=== PATIENT | male | born 1995 | race Caucasian/White ===

== ENCOUNTER 2018-02-25 10:57 | Emergency (ER) | payer OTHER ==
--- NOTE | 2018-02-25 11:23 | ED PSYCHIATRIC COMPLAINT ---
History of Present Illness General Chief Complaint: Psychiatric Related Complaint Stated Complaint: DEPRESSION Source: UNKNOWN Exam Limitations: no limitations Vital Signs & Intake/Output Vital Signs & Intake/Output Vital Signs Date Time Temp Pulse Resp B/P B/P Pulse O2 O2 Flow FiO2 Mean Ox Delivery Rate 02/25 1644 97.5 75 18 147/69 97 02/25 1519 97.7 72 18 115/77 99 Room Air 02/25 1322 98.2 88 18 118/74 100 Room Air 02/25 1103 98.0 76 16 124/77 99 Room Air Allergies Coded Allergies: [id number] Antimigraine Agents (Intermediate, PARADOXICAL REACTION 02/25/18) lurasidone (From LATUDA) (Intermediate, PARADOXICAL REACTION 02/25/18) Reconcile Medications Clonazepam 1 MG TABLET 1.5 TAB PO BID MENTAL HEALTH (Reported) Paroxetine HCl 25 MG TAB.ER.24H 2 TAB PO DAILY DEPRESSION (Reported) Triage Note: 22M ENDORSES SEVERE DEPRESSION. APPEARS DYSPHORIC, SPEECH SLOW, LIMITED RANGE OF AFFECT AND ENDORSES INCREASING DYSTONIA. MOTHER REPORTS HE HAD THOUGHTS OF HURTING HIMSELF LAST NIGHT BUT HE REPORTS HE HAS NO INTENT HE JUST DOESN'T WANT TO LIVE. DENIES HI/AH/VH. DENIES ETOH, REPORTS OCCASSIONAL MJ USE. TAKES PAXIL AND KLONOPIN. SLEEPS MOST OF THE DAY, ENDORSES ISOLATING. HX INPATIENT HOSPITALIZATION 4-5 YEARS AGO AT [facility] Triage Nurses Notes Reviewed? yes HPI: 22-year-old male with a history of schizoaffective disorder comes in with depression and suicidal ideations. He was brought in by his parents. He is also on the autism spectrum. Physically the patient denies any pain. He reports increasing depression and worsening symptoms over 2 months, worse over the last 2 days. The patient reports admission for psychiatric issues in the past but denies any suicidal attempts in the past. He reports he felt suicidal before coming to the emergency room, currently does not feel actively suicidal. (Atul Yousif DO) Past History Travel History Traveled to [place] past 21 day No Medical History Any Pertinent Medical History? see below for history Psychiatric: anxiety, GDD AUTISM Surgical History Surgical History: non-contributory Psychosocial History What is your primary language Scottish Tobacco Use: Never used Family History Hx Contributory? No (Atul Yousif DO) Review of Systems Review of Systems Constitutional: Denies: no symptoms, fever. EENTM: Denies: no symptoms. Respiratory: Denies: no symptoms. Cardiovascular: Denies: no symptoms. GI: Denies: no symptoms. Genitourinary: Denies: no symptoms. Musculoskeletal: Denies: no symptoms. Skin: Reports: no symptoms. Neurological/Psychological: Reports: depressed, emotional problems, headache. Denies: confusion, dementia. Hematologic/Endocrine: Reports: no symptoms. Immunologic/Allergic: Reports: no symptoms. (Atul Yousif DO) Physical Exam Physical Exam General Appearance: well developed/nourished, no apparent distress, alert, awake Head: atraumatic, normal appearance Eyes: Bilateral: normal appearance, PERRL. Ears, Nose, Throat: normal pharynx, normal ENT inspection Respiratory: normal breath sounds, chest non-tender, no respiratory distress Gastrointestinal: normal bowel sounds, soft, non-tender Extremities: normal range of motion Neurological/Psychiatric: awake, agitated, alert, PATIENT IS WITHDRAWN, AVOIDS EYE CONTACT. 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 yes 1 Depression/Hopelessness? yes 2 Previous Attempts/Psych Care yes 1 Excessive Ethanol/Drug Use? yes 1 Rational Thinking Loss? yes 2 Single//? yes 1 Social Support? has support 0 Stated Future Intent? yes 2 Total 10 SAD PERSONS Done? yes (Atul Yousif DO) Progress Differential Diagnosis: drug intoxication, drug overdose, drug withdrawal, DEPRESSION Plan of Care: Orders Procedure Date/time Status Regular Diet 02/25 D Active Continuous Observation Monitor 02/25 1122 Active URINE DRUG SCREEN FOR ER ONLY 02/25 112 Complete URINALYSIS 02/25 112 Complete ETHANOL 02/25 112 Complete COMPREHENSIVE METABOLIC PANEL 02/25 112 Complete CBC WITHOUT DIFFERENTIAL 02/25 1122 Complete ED CRISIS PSYCH CONSULT 02/25 1122 Active Laboratory Tests 02/25/18 1258: Urine Opiates Screen < 100, Methadone Screen < 40, Barbiturate Screen < 60, Ur Phencyclidine Scrn < 6.00, Amphetamines Screen < 100, U Benzodiazepines Scrn < 85, Urine Cocaine Screen < 50, Urine Cannabis Screen > 80.00 H, Urine Color YEL , Urine Clarity CLEAR, Urine pH 6.0, Ur Specific [place] <= 1.005, Urine Protein NEG, Urine Ketones NEG, Urine Nitrite NEG, Urine Bilirubin NEG, Urine Urobilinogen 0.2, Ur Leukocyte Esterase NEG, Ur Microscopic EXAM NOT REQUIRED, Urine Hemoglobin NEG, Urine Glucose NEG 02/25/18 1249: Anion Gap 12, Estimated GFR > 60, BUN/Creatinine Ratio 30.0 H, Glucose 101 H, Calcium 9.4, Total Bilirubin 0.4, AST 20, ALT 29, Alkaline Phosphatase 61, Total Protein 7.1, Albumin 4.2, Globulin 2.9, Albumin/Globulin Ratio 1.4, CBC w Diff NO MAN DIFF REQ, RBC 4.73, MCV 85.5, MCH 29.5, MCHC 34.5, RDW 12.5, MPV 7.6, Gran % 49.9, Lymphocytes % 36.1, Monocytes % 7.0, Eosinophils % 6.3 H, Basophils % 0.7, Absolute Granulocytes 3.9, Absolute Lymphocytes 2.8, Absolute Monocytes 0.5, Absolute Eosinophils 0.5, Absolute Basophils 0.1, Serum Alcohol < 10.0 Initial ED EKG: none (Atul Yousif DO) Comments: 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 (Loyd BRISCOE,Demar Dougherty) Departure Departure Condition: Stable Clinical Impression Primary Impression: Depression Secondary Impressions: Suicidal ideation Referrals: Mary Garcia MD Departure Forms: Customer Survey General Discharge Information Comments Patient was signed out to Dr. Harp at 2 PM (Atul Yousif DO) Departure Disposition: HOME OR SELF CARE (Loyd BRISCOE,Demar Dougherty)
[2018-02-25] MEDS ORDERED: PAROXETINE HCL25 MG PO (12:23)
[2018-02-25] MEDS ORDERED: CLONAZEPAM1 M2 PO (12:24)
[2018-02-25 13:02] LABS: ABSOLUTE BASOPHIL COUNT 0.1 /CUMM (0.0-0.2); ABSOLUTE EOSINOPHIL COUNT 0.5 /CUMM (0.0-0.7); ABSOLUTE GRANULOCYTE CT 3.9 /CUMM (1.4-6.5); ABSOLUTE LYMPH COUNT 2.8 /CUMM (1.2-3.4); ABSOLUTE MONOCYTE COUNT 0.5 /CUMM (0.10-0.60); BASOPHIL % 0.7 % (0.0-2.0); EOSINOPHIL % 6.3 % (0-5); GRANULOCYTE % 49.9 % (42.2-75.2); HEMATOCRIT 40.5 % (42-52); MEAN CORPUSCULAR HGB 29.5 PG (27.0-31.0); MEAN CORPUSCULAR HGB CONC 34.5 G/DL (33.0-37.0); MEAN CORPUSCULAR VOLUME 85.5 FL (80.0-94.0); MEAN PLATELET VOLUME 7.6 FL (7.4-10.4); PLATELET COUNT 260 /CUMM (130-400); RBC DISTRIBUTION WIDTH 12.5 % (11.5-14.5); RED BLOOD CELL CT 4.73 /CUMM (4.70-6.10); WHITE BLOOD CELL COUNT 7.8 /CUMM (4.8-10.8)
--- NOTE | 2018-02-25 16:29 | ED PSYCH CRISIS CONSULTATION ---
Crisis Consult Basic Assessment Date of Consult: 02/25/18 Responsible Person/Accompanied By: Tao Hernandez, father Insurance Authorization: Insurance #1: Insurance name: [employer]GE LACEY Phone number: Policy number: [id number] Group number: Authorization number: ED Provider: Patient's ED Provider: Atul Yousif DO Primary Care Physician: Patient's PCP: Samson Horton DO PCP's Current Psychiatrist: Dr Villatoro Chief Complaint: Psychiatric Related Anxiety and depression Patient's Quote: "Anxiety is the big problem, but i'm more depressed" Present Illness: Patient is a 22 year old unmarried male who lives with his family, and was brought to [facility] by his mother, who is concerned about his low energy level and greater isolation. Patient has been diagnosed as autistic and had been diagnosed as ADHD as a child, and he found school to be very difficult. Patient admits that he has been isolating more, and has been missing time at work, at [employer] where he is scheduled for 20 hours per week. Patient states that he does have fewer friends, and that he has not made a greater effort as he sees himself as "falling further behind, while others are getting way ahead". He also stated that he has only one friend who really "gets" him, and that it is harder for him to relate to some of periferal friends, and that he doesn't really have fun at work, "because it is work and is not supposed to be enjoyable ". Patient was very deliberate and thoughtful with his responses. He stated that he would not want to hurt himself, "because I think that suicide would be the worst thing, but I could see myself risking myself in order to do good, and save someone". Patient reports that he has been on the same medication for at least 3 years, and was thinking that that was the best things would ever get, but he now wonders if it is really helping at all. He has been taking Paxil 50 m.g., and Clonopin, 1.5 m.g. twice per day. Patient has bewen tried on other medications in the past, but he found they did not help or had worse side effects. They were : Latuda, Abilify, Seroquel, and Wilner. Patient has had considerable difficulty in social and school situations in the past. Patient does want help and states that he is willing to do what he needs to jorden. Patient's Address: [address] [place] [address] [place] [id number] Other Phone Number: Who Do You Live With? Family Family/Informants Interviewed: mother, father Mustapha Allergies - Coded Allergies: [id number] Antimigraine Agents (Intermediate, PARADOXICAL REACTION 02/25/18) lurasidone (From LATUDA) (Intermediate, PARADOXICAL REACTION 02/25/18) Current Medications - Scheduled Medications Clonazepam 1 MG TABLET 1.5 TAB PO BID MENTAL HEALTH #90 (Reported) Entered as Reported by Telly Retana on 02/25/18 1224 Paroxetine HCl 25 MG TAB.ER.24H 2 TAB PO DAILY DEPRESSION #180 (Reported) Entered as Reported by Telly Retana on 02/25/18 1223 Laboratory Results: Laboratory Tests 02/25/18 1258: Urine Opiates Screen < 100, Methadone Screen < 40, Barbiturate Screen < 60, Ur Phencyclidine Scrn < 6.00, Amphetamines Screen < 100, U Benzodiazepines Scrn < 85, Urine Cocaine Screen < 50, Urine Cannabis Screen > 80.00 H, Urine Color YEL , Urine Clarity CLEAR, Urine pH 6.0, Ur Specific [place] <= 1.005, Urine Protein NEG, Urine Ketones NEG, Urine Nitrite NEG, Urine Bilirubin NEG, Urine Urobilinogen 0.2, Ur Leukocyte Esterase NEG, Ur Microscopic EXAM NOT REQUIRED, Urine Hemoglobin NEG, Urine Glucose NEG 02/25/18 1249: Anion Gap 12, Estimated GFR > 60, BUN/Creatinine Ratio 30.0 H, Glucose 101 H, Calcium 9.4, Total Bilirubin 0.4, AST 20, ALT 29, Alkaline Phosphatase 61, Total Protein 7.1, Albumin 4.2, Globulin 2.9, Albumin/Globulin Ratio 1.4, CBC w Diff NO MAN DIFF REQ, RBC 4.73, MCV 85.5, MCH 29.5, MCHC 34.5, RDW 12.5, MPV 7.6, Gran % 49.9, Lymphocytes % 36.1, Monocytes % 7.0, Eosinophils % 6.3 H, Basophils % 0.7, Absolute Granulocytes 3.9, Absolute Lymphocytes 2.8, Absolute Monocytes 0.5, Absolute Eosinophils 0.5, Absolute Basophils 0.1, Serum Alcohol < 10.0 Past History Past Medical History Psychiatric: anxiety, GDD AUTISM Past Surgical History Surgical History: non-contributory Psychosocial History Strengths/Capabilities: patient has solid family support patient is a good informant Physical Limitations (Interventions): none Psychiatric Treatment History Psych Treatment Psychiatric Treatment Yes Inpatient Treatment Yes Outpatient Treatment Yes Location of Treatment [facility]. and Dr Villatoro Reason for Treatment Anxiety and depression Dates of Treatment past 15 years Response to Treatment fair Diagnosis by History: ADHD Autism Anxiety Depression Substance Use/Abuse History Drug Use/Abuse Substances Used/Abused No Substance Abuse Treatment Substance Abuse Treatment Past Substance Abuse [place] No Comments: patient is taking prescribed benzodiazapine Current Mental Status Mental Status Orientation: Current situation, Person, Place, Situation Affect: Anxious, Sad Speech: Soft Neuro-vegetative: Energy Decreased, Sleep Disturbance Appearance Appearance- Dress/Hygiene: patient in scrubs appears well groomed Behaviors Thought Process: WNL, articulate Thought Content: WNL Memory: WNL Insight: Fair SI/HI Risk Assessment Past Suicidal Ideation/Attempts Yes Current Suicidal Ideation/Att No Past Homicidal Ideation/Att: No Current Homicidal Ideation/Attempts No Degree of Intent: None Risk Factors: age (under 24/over 65), high anxiety/distress, SA/MH hospitalized, isolate/no social support, male Lethality Ratin (mild) PTSD Checklist PTSD Done? pt unable to participate ED Management Sitter: No Restraints: No DSM5/PS Stressors/Medical Prob Diagnosis' (DSM 5, Stressors, Medical): Anxiety disorder F41.1 ADHD F 90.2 Unspecified depression F 32.9 Current GAF: 42 Comments: patient has been more isolative. Patient staes that anxiety has always been a big problem, but now has worsening depression, and interactions with others is more difficult Departure Disposition Psych Medical Clearance Date: 02/25/18 Medically Cleared at: 1500 Time Started: 1505 Time Ended: 1600 Psychiatrist Consulted: Cadence Date Disposition Established: 02/25/18 Time Disposition Established: 1700 Plan for Disposition - Modality: Outpatient Facility: [facility] Follow-up Appt Date: 03/24/18 Follow-Up Appt Time: 1100 Rationale for Disposition: pt not danger to self Referrals Samson Horton DO (PCP/Family)
[2018-02-25 16:44] VITALS: BP 147/69
== END 2018-02-25 18:31 ==
LOC: ERH 10:57
PROVIDERS: Physician Assistant Medical
DX: F32.9 Major depressive disorder, single episode, unspecified (principal); R45.851 Suicidal ideations
CPT/HCPCS: 80307; 81003; G0463; G0480